=== PATIENT | male | born 1970 | race Hispanic/Latino ===

== ENCOUNTER 2024-02-04 10:57 | Observation (INO) | payer OTHER ==
[~2024-02-04] VITALS: Ht 177.8 cm; Wt 97.5 kg
[2024-02-04 11:05] VITALS: PULSE 67; RESP 18; TEMP 99
[2024-02-04] MEDS ORDERED: SODIUM CHLORIDE FLUSH 10 ML SYR INJ PRN (12:30)
[2024-02-04] MEDS: ASPIRIN 325 MG TAB PO ONE (12:48)
[2024-02-04 14:22] VITALS: BP 139/85; PULSE 70; RESP 16; TEMP 99; O2SAT 97
[2024-02-04] MEDS ORDERED: GABAPENTIN100 MG PO (14:35)
[2024-02-04] MEDS: ASPIRIN 81 MG CHEW TAB PO ONE (14:38)
[2024-02-04 16:45] VITALS: BP 116/73; PULSE 64; RESP 18; TEMP 98.1; O2SAT 96
[2024-02-04 18:36] VITALS: BP 116/73; PULSE 64; RESP 18; TEMP 98.1; O2SAT 96
[2024-02-04 20:00] VITALS: BP 116/72; PULSE 63; RESP 20; TEMP 98; O2SAT 98
[2024-02-04] MEDS ORDERED: ONDANSETRON HCL INJ 2MG/ML 2ML 2 MG/ML VIAL IV PRN (22:45)
[2024-02-04] MEDS ORDERED: ACETAMINOPHEN 325 MG TAB PO PRN (22:45)
[2024-02-04] MEDS ORDERED: POTASSIUM CHLORIDE 20 MEQ TAB CR PO PRN (22:45)
[2024-02-04] MEDS ORDERED: SIMETHICONE 80 MG CHEW PO PRN (22:45)
[2024-02-04] MEDS ORDERED: DIPHENHYDRAMINE HCL 25 MG CAP PO PRN (22:45)
[2024-02-04] MEDS ORDERED: BENZONATATE 100 MG CAP PO PRN (22:45)
[2024-02-04] MEDS ORDERED: DEXTROSE 50% SYRINGE 50 ML IV PRN (22:45)
[2024-02-04] MEDS ORDERED: HYDRALAZINE HCL 20 MG/ML VIAL IV PRN (22:45)
[2024-02-04] MEDS ORDERED: ALBUTEROL/IPRATROPIUM 3 ML NEB NEB PRN (22:45)
[2024-02-04] MEDS ORDERED: TRAMADOL HCL 50 MG TAB PO PRN (22:45)
[2024-02-04] MEDS ORDERED: LIDOCAINE 4% PATCH TP PRN (22:45)
[2024-02-04] MEDS ORDERED: DOCUSATE SODIUM 100 MG CAP PO PRN (22:45)
[2024-02-04] MEDS ORDERED: MELATONIN 5 MG TABLET PO PRN (22:45)
[2024-02-04 23:56] VITALS: BP 114/72; PULSE 71; RESP 18; TEMP 98.1; O2SAT 97
[2024-02-05 04:36] VITALS: BP 114/69; PULSE 75; RESP 20; TEMP 98.2; O2SAT 98
[2024-02-05 06:05] LABS: BASOPHILS % 0.2 % (0.0-1.0); EOSINOPHILS # (AUTO) 0.1 (0.0-0.4); EOSINOPHILS % 2.2 % (0.0-6.0); HEMATOCRIT 43.6 % (38.2-49.6); HEMOGLOBIN 14.4 g/dL (14.0-18.0); LYMPHOCYTES # (AUTO) 1.8 (1.0-3.2); LYMPHOCYTES % 28.3 % (18.0-39.1); MEAN CORPUSCULAR HEMOGLOBIN 29.1 pg (28-32); MEAN CORPUSCULAR VOLUME 88.3 fL (81-99); MONOCYTES # (AUTO) 0.6 (0.2-0.8); NEUTROPHILS # (AUTO) 3.9 (2.1-6.9); NEUTROPHILS % 59.8 % (38.7-80.0); PLATELET COUNT 228 x10e3/uL (140-360); RED BLOOD COUNT 4.94 x10e6/uL (4.3-5.7); WHITE BLOOD COUNT 6.46 x10e3/uL (4.8-10.8)
[2024-02-05 06:28] LABS: CALCIUM 9.5 mg/dL (8.4-10.2); CREATININE, SERUM 0.77 mg/dL (0.72-1.25)
[2024-02-05 06:52] LABS: THYROID STIMULATING HORMONE 0.918 uIU/mL (0.350-4.940)
[2024-02-05 07:32] LABS: CHOL/HDL RATIO 4.3 (3.9-4.7); MAGNESIUM 2.1 MG/DL (1.3-2.1); PHOSPHORUS 4.1 MG/DL (2.3-4.7)
[2024-02-05 07:38] LABS: TROPONIN I 0.001 ng/mL (0-0.300)
[2024-02-05 07:39] VITALS: BP 121/71; PULSE 72; RESP 18; TEMP 98; O2SAT 98
[2024-02-05] MEDS: PANTOPRAZOLE SOD 40 MG TABEC PO SCH (07:54)
[2024-02-05 08:02] VITALS: BP 121/71; PULSE 72; RESP 18; TEMP 98; O2SAT 98
[2024-02-05 11:37] VITALS: BP 110/60; PULSE 63; RESP 18; TEMP 97.6; O2SAT 99
[2024-02-05 14:59] LABS: TROPONIN I 0.009 ng/mL (0-0.300)
[2024-02-05] MEDS ORDERED: ENOXAPARIN SOD INJ 40 MG/0.4 ML SYR SC SCH (17:00)
[2024-02-05] MEDS ORDERED: GABAPENTIN 100 MG CAP PO SCH (21:00)
== END 2024-02-05 15:30 | disposition home or self-care (01) ==
LOC: FSED 11:05 → ERHOLD 12:21 → MED/SURG3 13:43
PROVIDERS: ADMIT Internal Medicine; ATTEND Internal Medicine
DX: I47.9 Paroxysmal tachycardia, unspecified (principal); F15.99 Other stimulant use, unspecified with unspecified stimulant-induced disorder; R07.9 Chest pain, unspecified
CPT/HCPCS: 36415; 71046; 80048; 80053; 80061; 80307; 81003; 82550; 82553; 83036; 83735; 84100; 84443; 84484 ×2; 85025 ×2; 93005; 93306; 99284; G0378 ×2; S0164